=== PATIENT | male | born 1995 | race Caucasian/White ===

== ENCOUNTER 2017-03-16 19:09 | Emergency (ER) | payer OTHER ==
[~2017-03-16] VITALS: Ht 175.3 cm; Wt 74.1 kg
[2017-03-16 19:18] VITALS: TEMP 36.8; Ht 175.3 cm; Wt 74.1 kg
--- NOTE | 2017-03-16 19:44 | EMERGENCY ROOM VISIT NOTE ---
History First contact with patient: 19:24 Chief Complaint: LACERATION/CUT (NON-SUTURE) Stated Complaint: GASH IN HEAD Nursing Triage Summary: Fell down four stairs, hit his head and has small laceration to the back of his head, denies LOC History of Present Illness The patient is a 21 year old male who presents to the Emergency Room with complaints of laceration to the back of his head. The patient states that he was drinking last night and approximately 12 midnight he fell down 4 steps and hit the back of his head on the steps. There was no loss of consciousness or short-term memory loss. The patient denies any headache, dizziness or visual changes. The patient denies any nausea or vomiting. The patient states that he cleaned it out with peroxide today. His tetanus is up-to-date. Review of Systems 10 system review was performed and was negative unless stated otherwise history of present illness. Past Medical/Surgical History Medical Problems: (1) Broken leg Family History Hypertension Social History Smoking Status: Current Some Day Smoker Alcohol Use: occasionally Marital Status: single Housing Status: lives with roommate Occupation Status: [employer] student Current/Historical Medications No Active Prescriptions or Reported Meds Physical Exam Vital Signs Date Time Temp Pulse Resp B/P (MAP) Pulse Ox O2 Delivery O2 Flow Rate FiO2 03/16/17 19:18 36.8 107 18 143/85 96 Room Air Physical Exam GENERAL: 21-year-old white male appears in no acute distress. MENTAL Status: Alert and oriented 3. HEAD: There is a 2.5 cm laceration on the right posterior parietal region without any active bleeding. The wound looks clean. The edges are apart approximately 2 mm. No deep structures are visualized. EYES: PERRLA. EOMs intact EARS: Canals clear. TMs without hemotympanum a.m. NEURO:Cranial nerves two through 12 intact. Cerebellar function intact with [id number]. Fine motor intact with alternating finger motions. Medical Decision & Procedures ED Course The patient was evaluated. The patient was educated on laceration repair. I told him that he needs to be seen within 8 hours for closure. If you close after 8 hours there is increased chance of infection. The patient verbalized understanding. The wound was cleansed with Betadine and copiously irrigated with normal saline. Bacitracin was applied. The patient was discharged home in stable condition. Medical Decision The patient did not have any signs of concussion or headache therefore a CT was not performed. Since the wound was 19 hours old, the wound was not closed with sutures. [place] Drug Monitoring Program Search Results: patient reviewed within database Medication Reconcilliation Current Medication List: was personally reviewed by me Blood Pressure Screening Patient's blood pressure: Normal blood pressure Impression Primary Impression: Laceration of head Departure Information Dispostion Home / Self-Care Condition GOOD Prescriptions No Active Prescriptions or Reported Meds Referrals No Doctor, Assigned (PCP) Forms HOME CARE DOCUMENTATION FORM, IMPORTANT VISIT INFORMATION, WORK / SCHOOL INSTRUCTIONS Patient Instructions My [facility] [employer] Additional Instructions Antibiotic ointment daily for 3 days. Watch for any signs of infection. If any should occur, seek further medical attention. Wash your hair with baby shampoo until wound is healed. Do not comb your hair over this area. Problem Qualifiers Primary Impression: Laceration of head Encounter type: initial encounter Location of open wound of head: scalp Foreign body presence: without foreign body Qualified Codes: S01.01XA - Laceration without foreign body of scalp, initial encounter
[2017-03-16 19:54] VITALS: BP 149/85; PULSE 100; O2SAT 99
== END 2017-03-16 19:56 | disposition home or self-care (01) ==
LOC: C.EDB 19:11 → C.EDD 19:56
DX: S01.01XA Laceration without foreign body of scalp, initial encounter (principal); W10.9XXA Fall (on) (from) unspecified stairs and steps, initial encounter; F17.200 Nicotine dependence, unspecified, uncomplicated; Z72.89 Other problems related to lifestyle; Z82.49 Family history of ischemic heart disease and other diseases of the circulatory system

== ENCOUNTER 2017-04-11 16:50 | Emergency (ER) | payer OTHER ==
[~2017-04-11] VITALS: Ht 175.3 cm; Wt 71.4 kg
[2017-04-11 16:58] VITALS: TEMP 36.9; Ht 175.3 cm; Wt 71.4 kg
--- NOTE | 2017-04-11 19:37 | EMERGENCY ROOM VISIT NOTE ---
History First contact with patient: 18:35 Chief Complaint: LACERATION/CUT (SUT/DERMABOND) Stated Complaint: LACERATION TO LEFT HAND, 4TH DIGIT Nursing Triage Summary: pt reports left ring and pinky fingers cut with end of metal broom History of Present Illness The patient is a 21 year old male who presents to the Emergency Room with complaints of lacerations to his left fourth and fifth fingers that occurred last night when he was holding a metal broom that had a sharp edge on it. The patient reports cleaning the wounds with vodka. He came in today because the wound on the left finger will not stop bleeding. His tetanus shot is up-to- date. She denies any numbness or tingling of the fingers. He denies any other injuries. Review of Systems 6 system review negative. Please see pertinent positives in the history of present illness section. Past Medical/Surgical History Medical Problems: (1) Broken leg Family History Hypertension Social History Smoking Status: Never Smoker Alcohol Use: occasionally Marital Status: single Housing Status: lives with roommate Occupation Status: [employer] student Current/Historical Medications No Active Prescriptions or Reported Meds Physical Exam Vital Signs Date Time Temp Pulse Resp B/P (MAP) Pulse Ox O2 Delivery O2 Flow Rate FiO2 04/11/17 19:57 57 18 112/68 100 04/11/17 16:58 36.9 55 18 108/71 100 Room Air Physical Exam VITALS: Vitals are noted on the nurse's note and reviewed by myself. Vital signs stable. GENERAL: 21-year-old male, in no acute distress, nondiaphoretic, well-developed well-nourished. SKIN: 1 cm lacerations noted to the volar aspect of the left fourth and fifth fingers. No active bleeding. The wounds gape apart. Subcutaneous fat is visible in the wound. No bony structures or tendons visible. No prominent vessels. Full flexion and extension of the fourth and fifth fingers. HEAD: Normocephalic atraumatic. MUSCULOSKELETAL: Strength 5/5 throughout. NEURO: Patient was alert and oriented to person place and time. Normal sensation to touch. No focal neurological deficits. Medical Decision & Procedures ED Course The patient was seen and examined The wounds were thoroughly cleansed with Betadine and rinsed with normal saline Steri-Strips were applied The patient was given a Kerlix bandage with Coban Discharge instructions were reviewed, and he was discharged in good condition Medical Decision Differential diagnosis: Laceration, wound infection This patient is a 21-year-old male presents to the emergency department with lacerations to the left fourth and fifth finger. The wound is almost 24 hours old. For this reason, they were not closed with sutures. The wounds were thoroughly cleansed. Steri-Strips were applied. The patient was given supplies to go. He was counseled on signs of infection. This chart was completed in part utilizing [employer] Speech Voice Recognition software. Attempts were made to minimize the grammatical errors, random word insertions, pronoun errors and incomplete sentences. Any formal questions or concerns about the content, text or information contained within the body of this dictation should be directly addressed to the provider for clarification. Impression Primary Impression: Laceration Departure Information Dispostion Home / Self-Care Condition GOOD Prescriptions No Active Prescriptions or Reported Meds Referrals No Doctor, Assigned (PCP) Patient Instructions My [facility] Additional Instructions Please leave the current bandage in place for 24 hours. After 24 hours, unbandage the wounds. Wash hands as you normally would. The Steri-Strips will fall off naturally. I will continue to keep the wounds covered for the next 5 days. Do not soak them in standing water such as doing dishes, swimming or bath tubs. Watch for signs of infection such as increased redness, swelling, pain, red streaking or drainage from the wounds. Please return for any of the symptoms. It was a pleasure participating in your care
[2017-04-11 19:57] VITALS: BP 112/68; PULSE 57; O2SAT 100
== END 2017-04-11 19:59 | disposition home or self-care (01) ==
LOC: C.EDB 16:51 → C.EDD 19:59
DX: S61.217A Laceration without foreign body of left little finger without damage to nail, initial encounter (principal); S61.215A Laceration without foreign body of left ring finger without damage to nail, initial encounter; W45.8XXA Other foreign body or object entering through skin, initial encounter; Y92.9 Unspecified place or not applicable; Z82.49 Family history of ischemic heart disease and other diseases of the circulatory system